=== PATIENT | male | born 1945 | race Caucasian/White ===

== ENCOUNTER → 2017-02-24 | Outpatient (CLI) | payer SELFPAY ==
[2015-12-30 02:06] VITALS: BP 141/88
--- NOTE | 2017-02-25 06:16 | CT ---
HISTORY: Screening Cardiac calcium scoring. Technique: Multiple axial images of the chest were obtained on a [address] from the aortic arch to the base of the heart with noncontrast prospective gating. AEC was utilized. Findings: A total calcium score of 152 is observed. The patient is between the 50 and 75th percentile for age and sex with definite, at least moderate, atherosclerotic plaque present. Mild Coronary artery dis ease is highly likely with significant narrowings possible. There is centrilobular emphysema with scarring in the left lung base. Thoracic spondylosis is noted. IMPRESSION: Elevated Coronary calcium score as above. Reported By:
== END ==
LOC: RAD 14:39
DX: Z13.6 Encounter for screening for cardiovascular disorders (principal)